=== PATIENT | female | born 1970 | race Caucasian/White ===

== ENCOUNTER 2019-03-06 17:27 | Emergency (ER) | payer SELFPAY ==
--- NOTE | 2019-03-06 17:30 | PDOC ---
Rapid Medical Evaluation Time Seen by Provider: 03/06/19 17:28 Medical Evaluation: Allergies Allergy/AdvReac Type Severity Reaction Status Date / Time No Known Allergies Allergy Verified 12/15/17 21:51 03/06/19 17:29 CC: cough and sore throat x2 weeks PE: No focal findings. Orders: nothing Patient will proceed to ER for further evaluation. Discharge Disposition - Diagnosis Cough - Referrals - Patient Instructions - Post Discharge Activity
[2019-03-06 17:32] VITALS: BP 130/66; PULSE 79; TEMP 98.3; BMI 31.1
--- NOTE | 2019-03-06 18:07 | PDOC ---
History of Present Illness - General Chief Complaint: Sore Throat Stated Complaint: SORE THROAT Time Seen by Provider: 03/06/19 17:28 - History of Present Illness Initial Comments: 03/06/19 18:06 48-year-old female without comorbidities presents for evaluation of 2 weeks of intermittent sore throat nasal congestion without systemic symptoms Past History - Past Medical History Allergies/Adverse Reactions: Allergies Allergy/AdvReac Type Severity Reaction Status Date / Time No Known Allergies Allergy Verified 03/06/19 17:32 Home Medications: Ambulatory Orders Cephalexin Monohydrate [Keflex -] 500 mg PO BID 10 Days #20 capsule 12/15/17 Cetirizine HCl/Pseudoephedrine [Zyrtec-D Tablet] 1 each PO DAILY #30 tab.er.12h 03/06/19 COPD: No - Psycho Social/Smoking Cessation Hx Smoking History: Never smoked Information on smoking cessation initiated: No Hx Alcohol Use: No Drug/Substance Use Hx: No Review of Systems - Review of Systems Constitutional: No: Fever *Physical Exam - Vital Signs Last Vital Signs Temp Pulse Resp BP Pulse Ox 98.3 F 79 18 130/66 99 03/06/19 17:30 03/06/19 17:30 03/06/19 17:30 03/06/19 17:30 03/06/19 17:30 - Physical Exam Comments: 03/06/19 18:06 GENERAL: The patient is awake, alert, and fully oriented, in no acute distress. HEAD: Normal with no signs of trauma. EYES: sclera anicteric, conjunctiva clear. ENT: Ears normal oropharynx normal uvula midline no erythema NECK: Normal range of motion LUNGS: Breath sounds equal, clear to auscultation bilaterally. No wheezes, and no crackles. HEART: S1 and S2 without murmur, rub or gallop. ABDOMEN: Soft, nontender, normoactive bowel sounds. No guarding, no rebound. No masses. EXTREMITIES: Normal range of motion, no edema. No clubbing or cyanosis. No cords, erythema, or tenderness. NEUROLOGICAL: Cranial nerves II through XII grossly intact. Normal speech, normal gait. PSYCH: Normal mood, normal affect. SKIN: Warm, Dry, normal turgor, no rashes or lesions noted. Medical Decision Making - Medical Decision Making 03/06/19 18:06 Most likely an allergic pharyngitis we will start on Zyrtec-D and have patient follow-up with primary care physician Discharge - Discharge Information Problems reviewed: Yes Clinical Impression/Diagnosis: Cough, Allergic pharyngitis Condition: Stable Disposition: HOME - Admission No - Follow up/Referral Referrals: Amalia Desai MD [Staff Physician] - - Patient Discharge Instructions Additional Instructions: Please take the medication as directed. Return to the emergency room for worsening symptoms. Without fail please follow-up with your internal medicine doctor in 1 to 2 days for further evaluation and treatment options. - Post Discharge Activity
== END 2019-03-06 18:14 | disposition home or self-care (01) ==
LOC: JERFT 17:27
DX: J02.9 Acute pharyngitis, unspecified (principal)
CPT/HCPCS: 99281-25

== ENCOUNTER 2019-07-02 17:52 | Emergency (ER) | payer SELFPAY ==
[2019-07-02 17:58] VITALS: BP 121/53; PULSE 80; TEMP 98.2; BMI 30.7
[2019-07-02] MEDS ORDERED: FLUORESCEIN NA 1 EA STRIP OS ONE (18:24)
[2019-07-02] MEDS ORDERED: FLUORESCEIN NA 1 EA STRIP ONE (18:25)
[2019-07-02] MEDS ORDERED: ERYTHROMYCIN 0.5% OPHTHALMIC OINTMENT 3.5 GM TUBE OS ONE (18:35)
[2019-07-02] MEDS ORDERED: IBUPROFEN 600 MG TABLET (FP) PO ONE ×2 (18:35→18:36)
--- NOTE | 2019-07-02 18:35 | PDOC ---
History of Present Illness - General Chief Complaint: Eye Problem Stated Complaint: LT EYE PAIN Time Seen by Provider: 07/02/19 18:17 History Source: Patient Exam Limitations: No Limitations Past History - Travel Traveled outside of the country in the last 30 days: No Close contact w/someone who was outside of country & ill: No - Past Medical History Allergies/Adverse Reactions: Allergies Allergy/AdvReac Type Severity Reaction Status Date / Time No Known Allergies Allergy Verified 07/02/19 17:58 Home Medications: Ambulatory Orders Cephalexin Monohydrate [Keflex -] 500 mg PO BID 10 Days #20 capsule 12/15/17 Cetirizine HCl/Pseudoephedrine [Zyrtec-D Tablet] 1 each PO DAILY #30 tab.er.12h 03/06/19 Erythromycin 0.5% Eye Ointment [Erythromycin 0.5% Eye Ointment -] 1 applic OS TID #1 tube 07/02/19 COPD: No - Psycho Social/Smoking Cessation Hx Smoking History: Never smoked Hx Alcohol Use: No Drug/Substance Use Hx: No Review of Systems - Review of Systems Able to Perform ROS?: Yes Comments:: 07/02/19 18:37 CONSTITUTIONAL: Absent: fever, chills, diaphoresis, generalized weakness, malaise, loss of appetite HEENT: Present: Red L eye, L eye pain, blurry vision Absent: rhinorrhea, nasal congestion, throat pain, throat swelling, difficulty swallowing, mouth swelling , ear pain, MUSCULOSKELETAL: Absent: myalgia, arthralgia, joint swelling SKIN: Absent: rash, itching, pallor NEUROLOGIC: Absent: headache, focal weakness or paresthesias, dizziness, unsteady gait, seizure, mental status changes, bladder or bowel incontinence PSYCHIATRIC: Absent: anxiety, depression, suicidal or homicidal ideation, hallucinations. Is the patient limited Romansh proficient: No *Physical Exam - Vital Signs Last Vital Signs Temp Pulse Resp BP Pulse Ox 98.2 F 80 16 121/53 L 98 07/02/19 17:55 07/02/19 17:55 07/02/19 17:55 07/02/19 17:55 07/02/19 17:55 - Physical Exam 07/02/19 18:38 GENERAL: The patient is awake, alert, and fully oriented, in no acute distress. HEAD: Normal with no signs of trauma. EYES: Pupils equal, round and reactive to light, extraocular movements intact, sclera anicteric, subconjunctival hematoma to the medial left canthus. Fluorescein staining shows uptake of dye to the left iris position 12-6 o'clock in the left eye. Vision OD 20/20, OS 20/40, OU 20/20. EXTREMITIES: Normal range of motion, no edema. NEUROLOGICAL: Normal speech, normal gait. PSYCH: Normal mood, normal affect. SKIN: Warm, Dry, normal turgor, no rashes or lesions noted. Medical Decision Making - Medical Decision Making 07/02/19 18:40 The patient is a 49-year-old female with past medical history of type 2 diabetes , presents to the ER today with left eye pain and redness since Monday. She states that she woke up and her left eye was red and bloodshot. She tried using Visine red eyedrops and her symptoms got worse. She notes that she feels like she has something stuck in her eye. She does not remember getting anything in her eye. She does not wear glasses. She also admits to associated headache. Denies dizziness, lightheadedness, nausea, vomiting. A/P: Subconjunctival hematoma, corneal abrasion. On exam there is a subconjunctival hematoma to the left medial canthus. There is no involvement of the iris. No hyphema present. No pain with applied pressure to the eye. Eye is soft. Fluorescein stain reveals a corneal abrasion to the iris positions 12:00 through 6:00 of the left eye. Blurry vision likely result of the corneal abrasion. We will start on erythromycin ointment. First dose given in the ER. Discharge home with ophthalmology follow-up. Instructed to the patient that she needs follow-up with ophthalmology this week. Referrals were given. I discussed the physical exam findings, ancillary test results and final diagnoses with the patient. I answered all of the patient's questions. The patient was satisfied with the care received and felt comfortable with the discharge plan and treatment plan. The Patient agrees to follow up with the primary care physician/specialist within 24-72 hours. Return precautions were given. Discharge - Discharge Information Problems reviewed: Yes Clinical Impression/Diagnosis: Subconjunctival hematoma Qualifiers: Laterality: left Qualified Code(s): H11.32 - Conjunctival hemorrhage, left eye Corneal abrasion Qualifiers: Encounter type: initial encounter Laterality: left Qualified Code(s): S05.02XA - Injury of conjunctiva and corneal abrasion without foreign body, left eye, initial encounter Condition: Stable Disposition: HOME - Admission No - Follow up/Referral Referrals: José Miguel Atkins MD [Staff Physician] - - Patient Discharge Instructions Patient Printed Discharge Instructions: DI for Corneal Abrasion Additional Instructions: Your evaluated for your eye pain today. You have a scratch on the surface of your eye. This is called a corneal abrasion. Please use the erythromycin ointment 3 times a day to help with your symptoms. Your blurry vision should start to resolve a little bit every day. You also have a ruptured blood vessel on the surface of your eye called a subconjunctival hematoma. This will heal on its own. There is no medication to make this better faster. Please follow-up with ophthalmology this week without fail for further management and evaluation of your symptoms. Return to the ER for worsening vision, increased pain in the eye despite treatment, dizziness, double vision, or if you have any changes in your symptoms. Tu evaluacin para tu dolor ocular hoy. Tienes un rasguo en la superficie del lina. Montverde se denomina abrasin corneal. Por favor, use la pomada de eritromicina 3 veces al da para ayudar con kim sntomas. Munoz visin borrosa debe comenzar a resolverse un poco cada da. Tambin tienes un vaso sanguneo roto en la superficie del lina llamado hematoma subconjuntival. Montverde sanar por s solo. No hay medicamentos para mejorar esto ms rpido. Por favor, realice un seguimiento con oftalmologa esta semana sin falta para un mayor manejo y evaluacin de kim sntomas. Regrese a urgencias para empeorar la visin, aumento del dolor en el lina a pesar del tratamiento, mareos, visin doble o si tiene algn cambio en los sntomas. [facility] [address] [place] [address] [place] [address] (Directions) Monday through Monday 8am -5pm - Post Discharge Activity
[2019-07-02] MEDS ORDERED: ERYTHROMYCIN 0.5% OPHTHALMIC OINTMENT 3.5 GM TUBE ONE (18:36)
== END 2019-07-02 18:52 | disposition home or self-care (01) ==
LOC: JERFT 17:52 → JER 17:52 → JERFT 18:52
DX: S05.02XA Injury of conjunctiva and corneal abrasion without foreign body, left eye, initial encounter (principal); H11.32 Conjunctival hemorrhage, left eye; R51 Headache; X58.XXXA Exposure to other specified factors, initial encounter; Y93.89 Activity, other specified; Y92.89 Other specified places as the place of occurrence of the external cause; Y99.8 Other external cause status
CPT/HCPCS: 99283-25

== ENCOUNTER 2020-10-15 16:52 | Emergency (ER) | payer SELFPAY ==
[2020-10-15 17:18] VITALS: BP 115/78; PULSE 78; TEMP 97.9; BMI 37.6
[2020-10-15 19:10] LABS: BASO % 0.5 % (0-2.0); EOS % 1.6 % (0-4.5); HEMATOCRIT 37.3 % (32.4-45.2); HEMOGLOBIN 12.2 GM/dL (10.7-15.3); LYMPH % 37.3 % (8-40); MCH 26.5 pg (25.7-33.7); MCHC 32.7 g/dl (32.0-36.0); MEAN CELL VOLUME 80.9 fl (80-96); MEAN PLT VOLUME 8.2 fl (7.5-11.1); MONO % 5.2 % (3.8-10.2); NEUT % 55.4 % (42.8-82.8); PLATELET COUNT 273 10^3/uL (134-434); RBC 4.61 M/mm3 (3.60-5.2); RDW 14.5 % (11.6-15.6); WHITE BLOOD COUNT 5.1 K/mm3 (4.0-10.0)
[2020-10-15 19:17] LABS: INR 1.07 (0.83-1.09); PROTHROMBIN TIME (PATIENT) 13.1 SEC (9.7-13.0)
[2020-10-15 19:31] LABS: ALBUMIN 3.7 g/dl (3.4-5.0); BLOOD UREA NITROGEN 8.3 mg/dL (7-18); CALCIUM 9.2 mg/dL (8.5-10.1)
[2020-10-15 19:34] LABS: CREATININE 0.6 mg/dL (0.55-1.3)
[2020-10-15 19:36] LABS: BILIRUBIN,TOTAL 0.2 mg/dL (0.2-1); TOT PROT 7.4 g/dl (6.4-8.2)
== END 2020-10-15 19:43 | disposition home or self-care (01) ==
LOC: JERFT 16:52 → JER 16:52 → JERFT 19:43
DX: R23.3 Spontaneous ecchymoses (principal); M25.562 Pain in left knee
CPT/HCPCS: 36415; 80053; 85025; 85610; 93971-TC; 99284-25

== ENCOUNTER 2022-02-14 16:51 | Emergency (ER) | payer OTHER ==
[2022-02-14 17:06] VITALS: BP 125/68; PULSE 74; RESP 18; TEMP 98.2; BMI 36.8
[2022-02-14] MEDS ORDERED: DEXAMETHASONE SOD PHOSPHATE 10 MG/1 ML VIAL PO ONE (17:44)
[2022-02-14] MEDS ORDERED: DEXAMETHASONE 4 MG TABLET (FP) ONE (17:55)
[2022-02-14 19:08] LABS: THROAT:GRP A STREP DETECTED (NOTDETECTED)
== END 2022-02-14 17:58 | disposition home or self-care (01) ==
LOC: JER 16:51
DX: J02.0 Streptococcal pharyngitis (principal)
CPT/HCPCS: 0241U-QW; 87651; 99283-25; J1100

== ENCOUNTER 2022-03-25 10:13 | Emergency (ER) | payer OTHER ==
[2022-03-25 10:42] VITALS: BP 121/62; PULSE 78; RESP 16; TEMP 97.8; BMI 29.2
[2022-03-25] MEDS ORDERED: DEXAMETHASONE SOD PHOSPHATE 10 MG/1 ML VIAL PO ONE (11:42)
[2022-03-25] MEDS ORDERED: DEXAMETHASONE SOD PHOSPHATE 10 MG/1 ML VIAL ONE (12:10)
== END 2022-03-25 12:00 | disposition home or self-care (01) ==
LOC: JER 10:13
DX: J02.9 Acute pharyngitis, unspecified (principal)
CPT/HCPCS: 0241U-QW; 87651; 93005; 93010; 99283-25; J1100

== ENCOUNTER 2022-04-02 18:26 | Emergency (ER) | payer OTHER ==
[2022-04-02 18:52] VITALS: BP 110/58; PULSE 75; RESP 18; TEMP 97.5; BMI 27.4
== END 2022-04-02 20:55 | disposition home or self-care (01) ==
LOC: JER 18:26
DX: J02.8 Acute pharyngitis due to other specified organisms (principal)
CPT/HCPCS: 0241U-QW; 87651; 99283-25

== ENCOUNTER 2022-06-04 18:03 | Emergency (ER) | payer OTHER ==
[2022-06-04 18:35] VITALS: BP 108/50; PULSE 67; RESP 18; TEMP 97; BMI 25.9
[2022-06-04] MEDS ORDERED: MAG HYDROX/AL HYDROX/SIMETH 30 ML UNIT-DOSE CUP PO ONE (19:04)
[2022-06-04] MEDS ORDERED: LIDOCAINE VISCOUS 2% ORAL/TOP 15 ML UNIT-DOSE CUP MM ONE (19:17)
[2022-06-04] MEDS ORDERED: FAMOTIDINE 20 MG/50 ML IVPB 20 MG/50 ML MG IVPB ONE ×2 (19:23→19:32)
[2022-06-04] MEDS ORDERED: MAG HYDROX/AL HYDROX/SIMETH 30 ML UNIT-DOSE CUP ONE (19:32)
[2022-06-04] MEDS ORDERED: LIDOCAINE VISCOUS 2% ORAL/TOP 15 ML UNIT-DOSE CUP ONE (19:32)
[2022-06-04 19:37] LABS: BASO % 0.6 % (0-2.0); EOS % 1.4 % (0-4.5); HEMATOCRIT 37.4 % (32.4-45.2); HEMOGLOBIN 12.2 GM/dL (10.7-15.3); LYMPH % 45.3 % (8-40); MCH 27.2 pg (25.7-33.7); MCHC 32.7 g/dl (32.0-36.0); MEAN CELL VOLUME 82.9 fl (80-96); MEAN PLT VOLUME 7.9 fl (7.5-11.1); MONO % 7.8 % (3.8-10.2); NEUT % 44.9 % (42.8-82.8); PLATELET COUNT 219 10^3/uL (134-434); RBC 4.51 M/mm3 (3.60-5.2); RDW 14.8 % (11.6-15.6); WHITE BLOOD COUNT 3.2 K/mm3 (4.0-10.0)
[2022-06-04 19:54] LABS: ALBUMIN 3.6 g/dl (3.4-5.0); BLOOD UREA NITROGEN 9.8 mg/dL (7-18)
[2022-06-04 19:57] LABS: CREATININE 0.6 mg/dL (0.55-1.3)
[2022-06-04 19:59] LABS: BILIRUBIN,TOTAL 0.3 mg/dL (0.2-1); TOT PROT 7.2 g/dl (6.4-8.2)
[2022-06-04 20:45] LABS: EPI CELLS 7 /uL (0-25.1); HYALINE CASTS 0 /uL (0-3.1); PH,URINE 6.5 (5.0-8.0); URINE APPEARANCE CLEAR; URINE BACTERIA 28 /uL (0-1359); URINE BILIRUBIN NEGATIVE (NEGATIVE); URINE COLOR YELLOW; URINE GLUCOSE (UA) NEGATIVE (NEGATIVE); URINE KETONE NEGATIVE (NEGATIVE); URINE LEUK ESTERASE 1+ (NEGATIVE); URINE NITRITE NEGATIVE (NEGATIVE); URINE PROTEIN NEGATIVE (NEGATIVE); URINE RBC 8 /uL (0-23.9); URINE WBC 35 /uL (0-25.8)
[2022-06-04] MEDS ORDERED: FAMOTIDINE 20 MG/50 ML IVPB 20 MG/50 ML MG IVPB SCH (22:00)
== END 2022-06-04 23:49 | disposition home or self-care (01) ==
LOC: JER 18:03
PROC: 3E033GC Introduction of Other Therapeutic Substance into Peripheral Vein, Percutaneous Approach (ICD-10-PCS; principal; 2022-06-04)
PROC: 3E033GC Introduction of Other Therapeutic Substance into Peripheral Vein, Percutaneous Approach (ICD-10-PCS; 2022-06-04)
DX: N39.0 Urinary tract infection, site not specified (principal); R10.84 Generalized abdominal pain
CPT/HCPCS: 36415; 71046-TC-FY; 74018-TC-FY; 74177-TC; 80053; 81003; 82550; 83690; 84484; 85025; 93005; 93010; 99285-25; C9803-CS; Q9967; U0003; U0005

== ENCOUNTER 2023-01-14 19:11 | Emergency (ER) | payer OTHER ==
[2023-01-14 19:32] VITALS: BP 121/78; PULSE 60; RESP 18; TEMP 98.1; BMI 25.8
[2023-01-14] MEDS ORDERED: FAMOTIDINE 20 MG/50 ML IVPB 20 MG/50 ML MG IVPB ONE ×2 (20:21→21:33)
[2023-01-14] MEDS ORDERED: MAG HYDROX/AL HYDROX/SIMETH 30 ML UNIT-DOSE CUP PO ONE (20:21)
[2023-01-14] MEDS ORDERED: LIDOCAINE 5% TOPICAL PATCH TP ONE (20:26)
[2023-01-14] MEDS ORDERED: CYCLOBENZAPRINE HCL 10 MG TABLET (FP) PO ONE (20:26)
[2023-01-14] MEDS ORDERED: SODIUM CHLORIDE 0.9% 500 ML INFUS.BAG IV ONE (20:28)
[2023-01-14] MEDS ORDERED: ACETAMINOPHEN 1000 MG/100 ML BAG IVPB ONE (20:28)
[2023-01-14] MEDS ORDERED: CYCLOBENZAPRINE HCL 10 MG TABLET (FP) ONE (21:32)
[2023-01-14] MEDS ORDERED: ACETAMINOPHEN INJECTION 100 ML IVPB ONE (21:32)
[2023-01-14] MEDS ORDERED: LIDOCAINE 5% TOPICAL PATCH ONE (21:32)
[2023-01-14] MEDS ORDERED: MAG HYDROX/AL HYDROX/SIMETH 30 ML UNIT-DOSE CUP ONE (21:32)
[2023-01-14 21:55] LABS: BASO % 0.6 % (0-2.0); EOS % 1.2 % (0-4.5); HEMATOCRIT 37.8 % (32.4-45.2); HEMOGLOBIN 12.2 GM/dL (10.7-15.3); LYMPH % 49.2 % (8-40); MCH 27.1 pg (25.7-33.7); MCHC 32.3 g/dl (32.0-36.0); MONO % 5.7 % (3.8-10.2); NEUT % 43.3 % (42.8-82.8); PLATELET COUNT 224 10^3/uL (134-434); RBC 4.49 M/mm3 (3.60-5.2); WHITE BLOOD COUNT 5.4 K/mm3 (4.0-10.0)
[2023-01-14] MEDS ORDERED: LIDOCAINE PATCH REMOVAL MC SCH (22:00)
[2023-01-14 22:27] LABS: POTASSIUM 3.7 mmol/L (3.5-5.1)
[2023-01-14 22:30] LABS: ALBUMIN 3.6 g/dl (3.4-5.0); BLOOD UREA NITROGEN 10.6 mg/dL (7-18)
[2023-01-14 22:34] LABS: BILIRUBIN,TOTAL 0.4 mg/dL (0.2-1); CREATININE 0.7 mg/dL (0.55-1.3); TOT PROT 7.2 g/dl (6.4-8.2)
== END 2023-01-14 23:13 | disposition home or self-care (01) ==
LOC: JER 19:11
PROC: 3E033GC Introduction of Other Therapeutic Substance into Peripheral Vein, Percutaneous Approach (ICD-10-PCS; principal; 2023-01-14)
PROC: 3E033NZ Introduction of Analgesics, Hypnotics, Sedatives into Peripheral Vein, Percutaneous Approach (ICD-10-PCS; 2023-01-14)
DX: R10.13 Epigastric pain (principal); R07.81 Pleurodynia; R42 Dizziness and giddiness
CPT/HCPCS: 36415; 80053; 83690; 84484; 85025; 93005; 93010; 99284-25

== ENCOUNTER 2023-04-11 20:03 | Emergency (ER) | payer OTHER ==
[2023-04-11 20:14] VITALS: BP 127/71; PULSE 78; RESP 20; TEMP 98.3; BMI 27.7
[2023-04-11 23:43] LABS: THROAT:GRP A STREP NOT DETECTED (NOTDETECTED)
== END 2023-04-12 01:14 | disposition home or self-care (01) ==
LOC: JERFT 20:03
DX: R05.9 Cough, unspecified (principal); R53.83 Other fatigue; R07.9 Chest pain, unspecified; M54.6 Pain in thoracic spine; K21.9 Gastro-esophageal reflux disease without esophagitis; B34.9 Viral infection, unspecified; Z20.822 Contact with and (suspected) exposure to COVID-19
CPT/HCPCS: 0241U-QW; 87651; 93005; 93010; 99284-25

== ENCOUNTER 2023-06-20 11:12 | Emergency (ER) | payer OTHER ==
[2023-06-20 11:18] VITALS: BP 116/68; PULSE 72; RESP 18; TEMP 98.1; BMI 25.8
[2023-06-20] MEDS ORDERED: ACETAMINOPHEN 325 MG TABLET (FP) ONE (12:23)
[2023-06-20] MEDS ORDERED: MAG HYDROX/AL HYDROX/SIMETH 30 ML UNIT-DOSE CUP ONE (12:23)
[2023-06-20] MEDS ORDERED: FAMOTIDINE 20 MG TABLET ONE (12:23)
[2023-06-20] MEDS: FAMOTIDINE 10 MG TABLET PO ONE (12:26)
[2023-06-20] MEDS: ACETAMINOPHEN 325 MG TABLET (FP) PO ONE (12:26)
[2023-06-20] MEDS: MAG HYDROX/AL HYDROX/SIMETH 30 ML UNIT-DOSE CUP PO ONE (12:26)
[2023-06-20 13:15] LABS: EPI CELLS 6 /uL (0-25.1); HYALINE CASTS 0 /uL (0-3.1); PH,URINE 6.5 (5.0-8.0); URINE APPEARANCE CLEAR; URINE BACTERIA 17 /uL (0-1359); URINE BILIRUBIN NEGATIVE (NEGATIVE); URINE COLOR YELLOW; URINE GLUCOSE (UA) NEGATIVE (NEGATIVE); URINE KETONE NEGATIVE (NEGATIVE); URINE LEUK ESTERASE TRACE (NEGATIVE); URINE NITRITE NEGATIVE (NEGATIVE); URINE PROTEIN NEGATIVE (NEGATIVE); URINE RBC 6 /uL (0-23.9); URINE WBC 15 /uL (0-25.8)
[2023-06-20 13:16] LABS: BASO % 0.4 % (0-2.0); EOS % 1.1 % (0-4.5); HEMATOCRIT 39.1 % (32.4-45.2); HEMOGLOBIN 12.8 GM/dL (10.7-15.3); LYMPH % 35.2 % (8-40); MCHC 32.7 g/dl (32.0-36.0); MEAN CELL VOLUME 82.7 fl (80-96); MEAN PLT VOLUME 8.3 fl (7.5-11.1); MONO % 5.9 % (3.8-10.2); NEUT % 57.4 % (42.8-82.8); PLATELET COUNT 251 10^3/uL (134-434); RBC 4.73 M/mm3 (3.60-5.2); RDW 14.6 % (11.6-15.6); WHITE BLOOD COUNT 4.5 K/mm3 (4.0-10.0)
[2023-06-20 13:16] LABS: POTASSIUM 4.6 mmol/L (3.5-5.1)
[2023-06-20 13:18] LABS: BLOOD UREA NITROGEN 7.7 mg/dL (7-18); CALCIUM 9.7 mg/dL (8.5-10.1)
[2023-06-20 13:19] LABS: ALBUMIN 3.5 g/dl (3.4-5.0)
[2023-06-20 13:21] LABS: CREATININE 0.5 mg/dL (0.55-1.3)
[2023-06-20 13:23] LABS: BILIRUBIN,TOTAL 0.6 mg/dL (0.2-1); TOT PROT 7.5 g/dl (6.4-8.2)
== END 2023-06-20 13:56 | disposition home or self-care (01) ==
LOC: JER 11:12
DX: R10.13 Epigastric pain (principal); J02.9 Acute pharyngitis, unspecified
CPT/HCPCS: 36415; 80053; 81003; 83690; 84484; 85025; 87086; 93005; 93010; 99284-25

== ENCOUNTER 2023-11-01 19:11 | Emergency (ER) | payer SELFPAY ==
[2023-11-01 19:22] VITALS: BP 127/82; PULSE 75; RESP 20; TEMP 97.8; BMI 28.4
[2023-11-01 20:50] LABS: BASO % 0.6 % (0-2.0); EOS % 1.1 % (0-4.5); HEMATOCRIT 37.3 % (32.4-45.2); HEMOGLOBIN 12.5 GM/dL (10.7-15.3); LYMPH % 42.8 % (8-40); MCH 27.3 pg (25.7-33.7); MCHC 33.4 g/dl (32.0-36.0); MEAN CELL VOLUME 81.7 fl (80-96); MEAN PLT VOLUME 7.9 fl (7.5-11.1); MONO % 6.7 % (3.8-10.2); NEUT % 48.8 % (42.8-82.8); PLATELET COUNT 225 10^3/uL (134-434); RBC 4.57 M/mm3 (3.60-5.2); RDW 14.8 % (11.6-15.6); WHITE BLOOD COUNT 4.9 K/mm3 (4.0-10.0)
[2023-11-01] MEDS ORDERED: ACETAMINOPHEN INJECTION 100 ML IVPB ONE (20:52)
[2023-11-01] MEDS ORDERED: MAG HYDROX/AL HYDROX/SIMETH 30 ML UNIT-DOSE CUP ONE (20:53)
[2023-11-01] MEDS ORDERED: FAMOTIDINE 20 MG/50 ML IVPB 20 MG/50 ML MG IVPB ONE (20:53)
[2023-11-01] MEDS: MAG HYDROX/AL HYDROX/SIMETH 30 ML UNIT-DOSE CUP PO ONE (20:59)
[2023-11-01] MEDS: ACETAMINOPHEN 1000 MG/100 ML BAG IVPB ONE (20:59)
[2023-11-01] MEDS: FAMOTIDINE 20 MG/50 ML IVPB 20 MG/50 ML MG IVPB ONE (21:00)
[2023-11-01 21:19] LABS: ALBUMIN 3.7 g/dl (3.4-5.0); BLOOD UREA NITROGEN 15.4 mg/dL (7-18)
[2023-11-01 21:23] LABS: CREATININE 0.6 mg/dL (0.55-1.3)
[2023-11-01 21:24] LABS: TOT PROT 7.5 g/dl (6.4-8.2)
[2023-11-01 21:30] LABS: BILIRUBIN,TOTAL 0.4 mg/dL (0.2-1)
== END 2023-11-01 22:54 | disposition home or self-care (01) ==
LOC: JER 19:11
PROC: 3E033GC Introduction of Other Therapeutic Substance into Peripheral Vein, Percutaneous Approach (ICD-10-PCS; principal; 2023-11-01)
PROC: 3E033NZ Introduction of Analgesics, Hypnotics, Sedatives into Peripheral Vein, Percutaneous Approach (ICD-10-PCS; 2023-11-01)
DX: R10.13 Epigastric pain (principal); R07.81 Pleurodynia; Z20.822 Contact with and (suspected) exposure to COVID-19
CPT/HCPCS: 0241U-QW; 36415; 71046-TC-FY; 80053; 84484; 85025; 93005; 93010; 99285-25; J0131

== ENCOUNTER 2024-03-13 13:13 | Observation (INO) | payer OTHER ==
[2024-03-13] MEDS: ACETAMINOPHEN 1000 MG/100 ML BAG IVPB ONE (15:10)
[2024-03-13] MEDS: LIDOCAINE 4% PATCH TP ONE (15:10)
[2024-03-13 15:38] LABS: BASO % 0.5 % (0-2.0); EOS % 1.2 % (0-4.5); HEMATOCRIT 37.6 % (32.4-45.2); HEMOGLOBIN 12.2 GM/dL (10.7-15.3); LYMPH % 40.5 % (8-40); MCH 27.1 pg (25.7-33.7); MCHC 32.5 g/dl (32.0-36.0); MEAN CELL VOLUME 83.3 fl (80-96); MEAN PLT VOLUME 8.3 fl (7.5-11.1); MONO % 6.8 % (3.8-10.2); PLATELET COUNT 217 10^3/uL (134-434); RBC 4.51 M/mm3 (3.60-5.2); RDW 14.8 % (11.6-15.6); WHITE BLOOD COUNT 4.6 K/mm3 (4.0-10.0)
[2024-03-13 16:08] LABS: POTASSIUM 4.3 mmol/L (3.5-5.1)
[2024-03-13 16:09] LABS: INR 1.04 (0.83-1.09); PROTHROMBIN TIME (PATIENT) 11.7 SEC (9.7-13.0)
[2024-03-13 16:11] LABS: ACTIVATED PTT 30.2 SECONDS (25.2-36.5); ALBUMIN 3.4 g/dl (3.4-5.0); BLOOD UREA NITROGEN 12.2 mg/dL (7-18); CALCIUM 9.4 mg/dL (8.5-10.1); MAGNESIUM 2.2 mg/dL (1.8-2.4)
[2024-03-13 16:14] LABS: CREATININE 0.6 mg/dL (0.55-1.3)
[2024-03-13 16:15] LABS: BILIRUBIN,TOTAL 0.7 mg/dL (0.2-1)
[2024-03-13 16:16] LABS: TOT PROT 6.9 g/dl (6.4-8.2)
[2024-03-13 17:07] LABS: HIV INTERPRETATION NEGATIVE (NEGATIVE)
[2024-03-13 20:43] VITALS: BMI 35.0
[2024-03-13] MEDS: ASPIRIN 325 MG ENTERIC COATED TABLET (FP) PO ONE (21:19)
[2024-03-13] MEDS: ASPIRIN COATED 81 MG TABLET.EC PO ONE (21:23)
[2024-03-13] MEDS: LIDOCAINE PATCH REMOVAL MC SCH (21:23)
[2024-03-13] MEDS: INSULIN ASPART SLIDING SCALE (NOVOLOG) 1 VIAL SQ SCH (21:24)
[2024-03-13] MEDS ORDERED: LIDOCAINE PATCH REMOVAL MC ONE (22:00)
[2024-03-13] MEDS ORDERED: ACETAMINOPHEN 325 MG TABLET (FP) PO PRN (22:20)
[2024-03-14 07:41] LABS: BASO % 0.6 % (0-2.0); EOS % 1.4 % (0-4.5); HEMATOCRIT 39.6 % (32.4-45.2); HEMOGLOBIN 12.8 GM/dL (10.7-15.3); LYMPH % 46.4 % (8-40); MCH 27.3 pg (25.7-33.7); MCHC 32.4 g/dl (32.0-36.0); MEAN CELL VOLUME 84.3 fl (80-96); MEAN PLT VOLUME 8.6 fl (7.5-11.1); MONO % 6.3 % (3.8-10.2); NEUT % 45.3 % (42.8-82.8); PLATELET COUNT 202 10^3/uL (134-434); RBC 4.69 M/mm3 (3.60-5.2); WHITE BLOOD COUNT 3.6 K/mm3 (4.0-10.0)
[2024-03-14 08:09] LABS: POTASSIUM 4.1 mmol/L (3.5-5.1)
[2024-03-14 08:11] LABS: CALCIUM 9.1 mg/dL (8.5-10.1)
[2024-03-14 08:12] LABS: ALBUMIN 3.3 g/dl (3.4-5.0); BLOOD UREA NITROGEN 12.6 mg/dL (7-18); MAGNESIUM 2.2 mg/dL (1.8-2.4)
[2024-03-14 08:15] LABS: CREATININE 0.5 mg/dL (0.55-1.3); PHOSPHOROUS 4.4 mg/dL (2.5-4.9)
[2024-03-14 08:16] LABS: BILIRUBIN,TOTAL 0.8 mg/dL (0.2-1); TOT PROT 6.6 g/dl (6.4-8.2)
[2024-03-14] MEDS: ENOXAPARIN NA (PORCINE) 40 MG/0.4 ML DISP.SYRIN SQ SCH (09:18)
[2024-03-14] MEDS: LIDOCAINE 5% TOPICAL PATCH TP SCH (09:18)
[2024-03-14 15:18] VITALS: RESP 18
[2024-03-14 18:03] VITALS: BP 119/64; PULSE 64; TEMP 97.9
== END 2024-03-14 18:10 | disposition home or self-care (01) ==
LOC: JER 13:13 → JERBED 16:14 → INTOOBSV 16:14 → J4W 19:08
PROVIDERS: ADMIT Internal Medicine; ATTEND Internal Medicine
PROC: 3E033NZ Introduction of Analgesics, Hypnotics, Sedatives into Peripheral Vein, Percutaneous Approach (ICD-10-PCS; principal; 2024-03-13)
PROC: 3E023GC Introduction of Other Therapeutic Substance into Muscle, Percutaneous Approach (ICD-10-PCS; 2024-03-13)
DX: M94.0 Chondrocostal junction syndrome [Tietze] (principal); R73.03 Prediabetes; R07.89 Other chest pain
CPT/HCPCS: 36415; 71046-TC-FY; 71260-TC; 80053; 80061; 82962; 83036; 83690; 83735; 84100; 84439; 84443; 84484; 85025; 85610; 85730; 86803; 87389; 93005; 93010; 96374; 99285-25; G0378; J0131